=== PATIENT | male | born 1990 | race Caucasian/White ===

== ENCOUNTER 2018-08-06 20:14 | Inpatient (IN) | payer OTHER ==
[~2018-08-06] VITALS: Ht 167.6 cm; Wt 82.2 kg
[2018-08-06 20:28] VITALS: Ht 167.6 cm; Wt 82.2 kg
[2018-08-06 20:54] LABS: BASOPHIL % 0.2 % (0-2); PLATELET COUNT 329 x10^3mcL (130-400); RED CELL DISTRIBUTION WIDTH 12.2 % (11.5-14.5)
[2018-08-06 21:10] LABS: UA SPECIFIC GRAVITY 1.025 (1.005-1.035); microscopic required? YES; urine erythrocyte 3+ (NEGATIVE)
[2018-08-06 21:51] LABS: BILIRUBIN TOTAL 0.12 mg/dL (0.20-1.00); CARBON DIOXIDE 17.6 mmol/L (21-32)
[2018-08-06 22:01] LABS: ALBUMIN 0.9 g/dL (3.4-5.0); TOTAL PROTEIN, SERUM 5.7 g/dL (6.4-8.2)
[2018-08-06 22:02] LABS: CALCIUM 5.5 mg/dL (8.5-10.1); CREATININE SERUM 5.5 mg/dL (0.7-1.3)
[2018-08-06 22:03] LABS: POTASSIUM SERUM 5.7 mmol/L (3.5-5.1)
[2018-08-07] VITALS (7 sets, daily range): BP systolic 141–167; BP diastolic 84–115
[2018-08-07 00:28] LABS: CHOLESTEROL 184 mg/dL (<200); MAGNESIUM 1.9 mg/dL (1.8-2.4); PHOSPHOROUS 8.2 mg/dL (2.5-4.9)
[2018-08-07 00:29] LABS: CHOLESTEROL/HDL RATIO 8.8; HDL CHOLESTEROL 21 mg/dL (40-60); TRIGLYCERIDES 501 mg/dL (<150)
[2018-08-07 00:30] LABS: FREE T4 0.85 ng/dL (0.76-1.46); FREE THYROXINE INDEX 2.2 ug/dL (1.4-4.5); T4(THYROXINE) 5.6 ug/dL (4.7-13.3)
[2018-08-07 00:31] LABS: T3 TOTAL 0.88 ng/mL
[2018-08-07 06:59] LABS: BASOPHIL % 0.2 % (0-2); PLATELET COUNT 337 x10^3mcL (130-400); RED CELL DISTRIBUTION WIDTH 12.1 % (11.5-14.5)
[2018-08-07 07:34] LABS: CARBON DIOXIDE 16.1 mmol/L (21-32); PHOSPHOROUS 8.7 mg/dL (2.5-4.9); POTASSIUM SERUM 5.4 mmol/L (3.5-5.1)
[2018-08-07 07:38] LABS: AMPHETAMINE QUAL UR NONE DETECTED (See below)
[2018-08-07 07:55] LABS: CALCIUM 5.6 mg/dL (8.5-10.1); CREATININE SERUM 5.9 mg/dL (0.7-1.3)
[2018-08-07 10:33] LABS: CARBON DIOXIDE 14.8 mmol/L (21-32)
[2018-08-07 10:47] LABS: POTASSIUM SERUM 5.6 mmol/L (3.5-5.1)
[2018-08-07 10:48] LABS: CALCIUM 5.6 mg/dL (8.5-10.1); CREATININE SERUM 5.9 mg/dL (0.7-1.3)
[2018-08-08 05:35] VITALS: BP 151/83
[2018-08-08 06:23] LABS: MAGNESIUM 1.9 mg/dL (1.8-2.4); PHOSPHOROUS 8.8 mg/dL (2.5-4.9)
[2018-08-08 06:39] LABS: CALCIUM 5.7 mg/dL (8.5-10.1); POTASSIUM SERUM 5.6 mmol/L (3.5-5.1)
[2018-08-08 06:49] LABS: BASOPHIL % 0.3 % (0-2); PLATELET COUNT 269 x10^3mcL (130-400); RED CELL DISTRIBUTION WIDTH 12.3 % (11.5-14.5)
[2018-08-08 07:55] VITALS: BP 138/86
[2018-08-08 15:46] VITALS: BP 156/95
[2018-08-08 15:49] VITALS: BP 156/95
[2018-08-08 20:05] VITALS: BP 154/99
[2018-08-09] VITALS (7 sets, daily range): BP systolic 145–158; BP diastolic 84–108
[2018-08-09 06:43] LABS: BASOPHIL % 0.5 % (0-2); PLATELET COUNT 231 x10^3mcL (130-400)
[2018-08-09 06:53] LABS: RED CELL DISTRIBUTION WIDTH 11.4 % (11.5-14.5)
[2018-08-09 07:07] LABS: CARBON DIOXIDE 22.8 mmol/L (21-32); MAGNESIUM 1.7 mg/dL (1.8-2.4); PHOSPHOROUS 6.6 mg/dL (2.5-4.9); POTASSIUM SERUM 4.8 mmol/L (3.5-5.1)
[2018-08-09 07:08] LABS: CREATININE SERUM 6.1 mg/dL (0.7-1.3)
[2018-08-10 05:19] VITALS: BP 147/87
[2018-08-10 06:45] LABS: BASOPHIL % 0.5 % (0-2); PLATELET COUNT 244 x10^3mcL (130-400); RED CELL DISTRIBUTION WIDTH 11.5 % (11.5-14.5)
[2018-08-10 07:07] LABS: CARBON DIOXIDE 19.9 mmol/L (21-32); MAGNESIUM 1.5 mg/dL (1.8-2.4)
[2018-08-10 07:25] LABS: CREATININE SERUM 7.3 mg/dL (0.7-1.3)
[2018-08-10 07:26] LABS: CALCIUM 5.6 mg/dL (8.5-10.1)
[2018-08-10 08:45] VITALS: BP 143/102
[2018-08-10 12:30] VITALS: BP 130/86
[2018-08-10 14:59] LABS: CARBON DIOXIDE 25.3 mmol/L (21-32); POTASSIUM SERUM 5.4 mmol/L (3.5-5.1)
[2018-08-10 15:19] LABS: CREATININE SERUM 7.8 mg/dL (0.7-1.3)
[2018-08-10 18:01] VITALS: BP 135/87
[2018-08-10 21:52] VITALS: BP 120/70
[2018-08-11] VITALS (7 sets, daily range): BP systolic 123–155; BP diastolic 83–102
[2018-08-11 07:38] LABS: CALCIUM 6.5 mg/dL (8.5-10.1); CARBON DIOXIDE 23.8 mmol/L (21-32); MAGNESIUM 1.7 mg/dL (1.8-2.4); PHOSPHOROUS 6.5 mg/dL (2.5-4.9); POTASSIUM SERUM 4.4 mmol/L (3.5-5.1)
[2018-08-11 07:39] LABS: CREATININE SERUM 6.1 mg/dL (0.7-1.3)
[2018-08-11 14:57] LABS: PLATELET COUNT 243 x10^3mcL (130-400)
[2018-08-11 15:03] LABS: RED CELL DISTRIBUTION WIDTH 11.2 % (11.5-14.5)
[2018-08-11 15:53] LABS: BAND NEUTROPHIL 2 % (0-10); BASOPHIL 0 % (0-2); MONOCYTE 4 % (0-7); SEGMENTED NEUTROPHILS 91 % (37-75)
[2018-08-11 15:55] LABS: PLATELET MORPHOLOGY PLATELETS DECREASED; rbc morphology (normal/abnorm) ABNORMAL (NORMAL)
[2018-08-12 05:51] VITALS: BP 145/102
[2018-08-12 06:39] LABS: BASOPHIL % 1.2 % (0-2); PLATELET COUNT 216 x10^3mcL (130-400); RED CELL DISTRIBUTION WIDTH 11.9 % (11.5-14.5)
[2018-08-12 06:56] LABS: CALCIUM 6.1 mg/dL (8.5-10.1); PHOSPHOROUS 6.8 mg/dL (2.5-4.9)
[2018-08-12 07:26] LABS: CREATININE SERUM 8.2 mg/dL (0.7-1.3)
[2018-08-12 09:07] VITALS: BP 135/90; BP 136/69
[2018-08-12 12:28] VITALS: BP 155/109
[2018-08-12 15:28] VITALS: BP 155/109
[2018-08-12 17:20] VITALS: BP 182/116
[2018-08-12 20:25] VITALS: BP 156/96
[2018-08-13 05:45] VITALS: BP 147/100
[2018-08-13 06:44] LABS: CALCIUM 6.9 mg/dL (8.5-10.1); CARBON DIOXIDE 28.1 mmol/L (21-32); MAGNESIUM 1.7 mg/dL (1.8-2.4); PHOSPHOROUS 5.1 mg/dL (2.5-4.9); POTASSIUM SERUM 4.5 mmol/L (3.5-5.1)
[2018-08-13 06:54] LABS: BASOPHIL % 0.7 % (0-2); PLATELET COUNT 212 x10^3mcL (130-400); RED CELL DISTRIBUTION WIDTH 11.7 % (11.5-14.5)
[2018-08-13 06:58] LABS: CREATININE SERUM 7.1 mg/dL (0.7-1.3)
[2018-08-13 09:54] VITALS: BP 147/95
[2018-08-13 13:21] VITALS: BP 128/90
[2018-08-13 17:33] VITALS: BP 156/98
[2018-08-13] MEDS ORDERED: ADA90 PO (20:19)
[2018-08-13 20:25] VITALS: BP 154/101
== END 2018-08-13 21:23 | disposition home or self-care (01) | DRG 469 ==
LOC: ED 20:14 → MU 23:11 → DU 23:11
PROVIDERS: Emergency Medicine; Family Medicine; Surgery; ADMIT Internal Medicine
PROC: B548ZZA Ultrasonography of Superior Vena Cava, Guidance (ICD-10-PCS; 2018-08-10)
PROC: 05HM33Z Insertion of Infusion Device into Right Internal Jugular Vein, Percutaneous Approach (ICD-10-PCS; 2018-08-10)
PROC: B543ZZA Ultrasonography of Right Jugular Veins, Guidance (ICD-10-PCS; 2018-08-10)
PROC: 02HV33Z Insertion of Infusion Device into Superior Vena Cava, Percutaneous Approach (ICD-10-PCS; principal; 2018-08-10 16:15)
DX: N17.0 Acute kidney failure with tubular necrosis (principal); J96.00 Acute respiratory failure, unspecified whether with hypoxia or hypercapnia; E43 Unspecified severe protein-calorie malnutrition; I12.0 Hypertensive chronic kidney disease with stage 5 chronic kidney disease or end stage renal disease; K72.90 Hepatic failure, unspecified without coma; E87.2 Acidosis; N18.6 End stage renal disease; E87.1 Hypo-osmolality and hyponatremia; F15.10 Other stimulant abuse, uncomplicated; F12.10 Cannabis abuse, uncomplicated; E83.39 Other disorders of phosphorus metabolism; J98.11 Atelectasis; E02 Subclinical iodine-deficiency hypothyroidism; E83.51 Hypocalcemia; E87.5 Hyperkalemia; R80.9 Proteinuria, unspecified; Z99.2 Dependence on renal dialysis; Z68.29 Body mass index [BMI] 29.0-29.9, adult; F17.210 Nicotine dependence, cigarettes, uncomplicated
CPT/HCPCS: 83880; 84439; 86580; A4301; A4719; G0480; J0360; J0690; J1642; J1644; J1940; J2001; J2060; J3475; J3490; J7030; Q0092

== ENCOUNTER 2019-02-17 11:13 | Inpatient (IN) | payer OTHER ==
[~2019-02-17] VITALS: Ht 167.6 cm; Wt 74.0 kg
[~2019-02-17 11:13] MED LIST: ADA90 PO
--- NOTE | 2019-02-17 11:40 | NUR ---
ABD PAIN LUQ 8/10 TENDER TO PALP AND CLAIMS DIARRHEA. ABD FIRM AND SLIGHTLY ROUND. PT ALSO HAS BILATERAL NON PITTING EDEMA SLIGHT WITH 2/10 PAIN UPON PALPATION. PT HERE FOR NOT THE FEELING OF BEING "SWOLLEN". PT HAS RIGHT UPPER CHEST ANGELINA CATH AND IS IN DIALYSIS AND IS SUPPOSED TO GO 3 TIMES A WEEK AND HAS NOT HAD DIALYSIS FOR APPROX 1 MONTH. PT ARRIVES AND CLAIMS HE HAS NOT GONE DUE TO INSURANCE AND MD ISSUES. ALERT AND ORIENTED WITH NO DISTRESS NOTED AND VSS EXCEPT BP 168/117. DR LARA AT BEDSIDE FOR KAREN
--- NOTE | 2019-02-17 11:43 | NUR ---
LAB AT BEDSIDE
[2019-02-17 11:52] LABS: PLATELET COUNT 201 x10^3mcL (130-400)
[2019-02-17] MEDS ORDERED: NATURE'S BLEND F1 MG PO (12:02)
[2019-02-17] MEDS ORDERED: CALCIUM ACETAT667 M3 PO (12:02)
[2019-02-17 12:06] LABS: BILIRUBIN TOTAL 0.3 mg/dL (0.20-1.00); CALCIUM 6.4 mg/dL (8.5-10.1); TOTAL PROTEIN, SERUM 6.4 g/dL (6.4-8.2)
[2019-02-17 12:13] LABS: ALBUMIN 1.5 g/dL (3.4-5.0)
[2019-02-17 12:16] LABS: CARBON DIOXIDE 9.9 mmol/L (21-32); POTASSIUM SERUM 5.9 mmol/L (3.5-5.1)
[2019-02-17 12:17] LABS: CREATININE SERUM 18.4 mg/dL (0.7-1.3)
[2019-02-17 12:20] LABS: BAND NEUTROPHIL 1 % (0-10); BASOPHIL 0 % (0-2); MONOCYTE 7 % (0-7); SEGMENTED NEUTROPHILS 77 % (37-75)
[2019-02-17 12:21] LABS: PLATELET MORPHOLOGY PLATELETS DECREASED; ovalocyte/elliptocyte 1+; rbc morphology (normal/abnorm) ABNORMAL (NORMAL)
[2019-02-17] MEDS ORDERED: METOPROLOL SUCC50 M2 PO (12:49)
--- NOTE | 2019-02-17 13:15 | NUR ---
REPORT GIVEN TO YUSUF FERRERA RN. BED NOT AVAILABLE AND WILL BRING PT IN APPROX 10 MIN.
[2019-02-17 13:34] LABS: T3 TOTAL 0.78 ng/mL
[2019-02-17 13:35] LABS: FREE T4 0.83 ng/dL (0.76-1.46); FREE THYROXINE INDEX 2.1 ug/dL (1.4-4.5); T4(THYROXINE) 5.9 ug/dL (4.7-13.3)
[2019-02-17 14:05] VITALS: BP 155/111
--- NOTE | 2019-02-17 14:11 | NUR ---
CHI BROWN ORDERED A KO CATH. MYSELF AND ADONIS RIDER AND AURA RIDER, ALL TRIED TO INSERT THE KO, BUT WE WERE UNABLE TO PUSH PAST THE BASE OF HIS URETHRA, IT CURLED BACK. I DID A BLADDER SCAN, AND IT SHOWED ONLY 67 ML URINE. I TOLD THE PATIENT TO USE THE URINAL PROVIDED IF HE NEEDS TO URINATE. CHI BROWN AWARE OF ALL THE ABOVE.
[2019-02-17 14:24] LABS: CHOLESTEROL 294 mg/dL (<200); CHOLESTEROL/HDL RATIO 15.5; HDL CHOLESTEROL 19 mg/dL (40-60); TRIGLYCERIDES 640 mg/dL (<150)
--- NOTE | 2019-02-17 14:26 | NUR ---
RECEIVED PT FROM ER, PT ADMIT FOR RENAL FAILURE, METABOLIC ACIDOSIS, ACS, PT IS A/O X4, VERBAL RESPONSIVE, LUNG SOUND CLEAR BILATERAL, PT IS ON 2L/MIN O2 VIA NC. PO2 98%, DENY ANY SOB AT THIS TIME, PT IS ON TELE 17, NSR, DENY ANY CHEST PAIN OR DISCOMFORT, BOWEL SOUND PRESENT ALL 4 QUADRANTS, NO DISTENTION, NO TENDER. PEDAL PULSE PRESENT BOTH FEET, NO EDEMA, IV AT LEFT AC, NO LEAKING, NO INFILTRATION. PT HAS MCKINLEY CATH AT RIGHT UPPER CHEST, PT STATE HE HASN'T HAVE DIALYSIS FOR OVER 1 MONTH. ALL ADLS ASSIST, ALL NEED MET, CALL LIGHT IN REACH, ALL INFORMATION ENDORSE TO IBAN RIDER.
[2019-02-17 16:32] VITALS: BP 149/115
--- NOTE | 2019-02-17 16:58 | NUR ---
CHI FRANCIS SOLE DYER AWARE THAT TROPONIN IS 0.140, NO FURTHER ORDERS. SHE ORDERED A CARDIAC CONSULT PREVIOUSLY, AND THE PREVIOUS TROPONIN WAS 0.129. HE IS ALSO A HEMODIALSIS PATIENT.
[2019-02-17 17:58] LABS: UA SPECIFIC GRAVITY 1.015 (1.005-1.035); microscopic required? YES; urine erythrocyte 3+ (NEGATIVE)
[2019-02-17 18:08] LABS: AMPHETAMINE QUAL UR NONE DETECTED (See below)
--- NOTE | 2019-02-17 18:09 | NUR ---
AAO TIMES 4. TELE # 17 SR. HE WILL GET HD TONIGHT, THE CONSENT SIGNED. NO C/O PAIN. NO SOB. URINE SENT FOR UDS, URC, AND UA. GOOD APPETITE. COOPERATIVE.
--- NOTE | 2019-02-17 19:30 | NUR ---
RECIEVED PATIENT AT START OF SHIFT RESTING IN BED, A/O X4. ON TELE 17, NSR. PERMACATH TO RIGHT UPPER CHEST. DIALYSIS NURSE AT BEDSIDE SETTING UP HD. IV TO LAC IS INFUSING WITHOUT ERYTHEMA OR INFILTRATION. NO SOB ON 2L NC. LUNGS DIMINISHED AT BILATERAL BASES. PATIENT DENIES PAIN. BED LOCKED AND IN LOWEST POSIITON. CALL LIGHT AND BEDSDIE TABLE WITHIN REACH.
[2019-02-17 20:47] VITALS: BP 143/109
--- NOTE | 2019-02-17 21:00 | NUR ---
ORDER FOR KO CATHETER FROM DAYSHIFT NOTED. NO KO IN PLACE AT THIS TIME. PATIENT STATES HE VOIDS FREELY WITHOUT DIFFICULTY.DR. GUNDERSON NOTIFIED, HE STATED IT IS OKAY TO HOLD KO AT THIS TIME.
--- NOTE | 2019-02-17 21:30 | NUR ---
HD COMPLETED AT THIS TIME, 2L OUT. BP IS 147/106. PATIENT DENIES N/V PAIN. PERMACATH SITE CDI AND HEP LOCKED.
--- NOTE | 2019-02-18 06:09 | NUR ---
PATIENT IS AWAKE. PATIENT REPORTED HE DID NOT SLEEP WELL THROUGH THE NIGHT. DENIES PAIN. NO SOB ON 2L NC. IV INFUSING WITHOUT ERYTHEMA OR INFILTRATION. CHG WIPES PROVIDED TO PREVENT CLABSI. BED LOCKED AND IN LOWEST POSITION. CALL LIGHT AND BEDSIDE TABLE WITHIN REACH. WILL ENDORSE CARE TO DAYSHIFT NURSE.
[2019-02-18 06:12] VITALS: BP 147/101
[2019-02-18 06:44] LABS: PLATELET COUNT 183 x10^3mcL (130-400); RED CELL DISTRIBUTION WIDTH 14.2 % (11.5-14.5)
--- NOTE | 2019-02-18 07:00 | NUR ---
RECEIVED REPORT FROM MADISYN RN, PT IN NO ACUTE DISTRESS
--- NOTE | 2019-02-18 07:15 | NUR ---
PT IN BED, IN NO ACUTE RESP DISTRESS, VERBAL, ENLISH, ABLE TO MAKE NEEDS KNOWN, CALM AND COPPERATIVE, PERRLA, NO REDNESS/DISCHARGE, RESP EVEN AND NON-LABORED, CHEST RISE SYMMETRICALLY, TELE #17, NSR, HR-97 AT THIS TIME, ABD FLAT AND NON-TENDER TO TOUCH, BS ACTIVE, DIARRHEA X 1 ON 02/17, PALP PULSES, CAP REFIL < 2 SECS, DIM BLL, HD MWF, LAST DIALYSIS 02/17, PERM CATH RUC PATENT, DERESSING CDI, AMBULATORY, IV PATENT AND NO INFILTRATION, AMBULATORY, CONTINENT, SKIN D/W/C, ALL NEEDS ADDRESSED AT THIS TIME, SAFERTY PROTOCOL FOLLOWED, CONTINUE TO MONITOR
[2019-02-18 07:22] LABS: CALCIUM 6.4 mg/dL (8.5-10.1); CARBON DIOXIDE 19.3 mmol/L (21-32); MAGNESIUM 1.7 mg/dL (1.8-2.4); PHOSPHOROUS 8.6 mg/dL (2.5-4.9); POTASSIUM SERUM 4.5 mmol/L (3.5-5.1)
[2019-02-18 07:28] LABS: CREATININE SERUM 12.9 mg/dL (0.7-1.3)
--- NOTE | 2019-02-18 07:34 | NUR ---
RECEIVED LAB BUN 64.0, CR 12.9, RELEASE ENGINEER CHI FRANCIS MADE AWARE, CHARGE NURSE GE MADE AWARE
[2019-02-18 09:23] VITALS: BP 141/102
--- NOTE | 2019-02-18 09:36 | NUR ---
DONOR CENTER TECHNICIAN COURTNEY MADE AWARE OF BUN AND CR LEVEL, SAID WILL ORDER DIALYSIS X 1 TIME TODAY, PT MADE AWARE, CHARGE NRUSE ADONIS MADE AWARE, CONTINUE TO MONITOR
--- NOTE | 2019-02-18 09:36 | NUR ---
PT IN NO ACUTE RESP DISTRESS, IN BED, AM MED GIVEN PER MD ORDER, TAKEN WELL, NO ASE NOTED AT THIS TIME, ALL NEEDS ADDRESSED, SAFETY PROTOCOL FOLLOWED, CONTINUE TO MONITOR
[2019-02-18 09:53] LABS: BAND NEUTROPHIL 1 % (0-10); BASOPHIL 0 % (0-2); MONOCYTE 11 % (0-7); SEGMENTED NEUTROPHILS 73 % (37-75)
[2019-02-18 09:55] LABS: rbc morphology (normal/abnorm) ABNORMAL (NORMAL)
[2019-02-18 09:56] LABS: PLATELET MORPHOLOGY PLATELETS NORMAL; burr cell (echinocyte) 1+; tear drop cell (dacryocyte) 1+
--- NOTE | 2019-02-18 10:11 | NUR ---
INFECTION PREVENTION COORDINATOR ADREA FRANCIS AWARE OF WBC-2.3, REVERSED ISOLATION APPLIED, PT MADE AWARE, PT EDUCATED A/B S/S OF INFECTION AND REPORT ITALIA, VERBALLY UDNERSTANDING, CONTINUE TO MONITOR
--- NOTE | 2019-02-18 10:49 | NUR ---
CLOTHING SUPERVISOR CHI FRANCIS MADE AWARE OF NEW ELEVATED TROPONIN LEVEL AT 0.142, CHARGE NURSE ADONIS MADE AWARE, CONTINUE TO MONITOR
[2019-02-18 13:29] VITALS: BP 142/101
--- NOTE | 2019-02-18 13:42 | NUR ---
ECHO PENDING. PT HAVING HD.
--- NOTE | 2019-02-18 13:43 | NUR ---
[facility] HD RN REPORTED THAT HE RECEIVED TELEPHONE ORDER FROM FILM SOUND ENGINEER COURTNEY FOR HD AFTER LUNCH VIA TELEPHONE, PT HAD HD AT BEDSIDE AT THIS TIME, FAMILY AT BEDSIDE, IN NO ACUTE DISTRESS, CONTINUE TO MONITOR
--- NOTE | 2019-02-18 13:46 | NUR ---
PT HAD ORDER FOR CXR 2 VIEW, WILL BE DONE AFTER HD, PT MADE AWARE, CHARGE NURSE ADONIS MADE AWARE
[2019-02-18 15:04] VITALS: Ht 167.6 cm; Wt 74.0 kg
--- NOTE | 2019-02-18 17:03 | NUR ---
PT FINISHED HD, 2000ML FLUID REMOVED, REPORTED NO PAIN/CP/PRESSURE, REPORT NO DISCOMFORT AT THIS TIME, LYING IN BED, RESP EVEN AND NON-LABORED, CHEST RISE SYMMETRICALLY, ALL NEEDS ADDRESSED AT THIS TIME, WILL CONTINUE TO MONITOR
[2019-02-18 17:41] VITALS: BP 150/108
--- NOTE | 2019-02-18 18:06 | NUR ---
PT RESTING IN BED W/ EYE CLOSED, IN NO APPARENT ACUTE DISTRESS, NO FACIAL DROOP, RESP EVEN AND NON-LANORED, CHEST RISE SYMMETRICALLY, ABD FLAT AND NON-TENDER TO TOUCH, ABLE TO MOVE ALL EXTREMITITES, PALP PULSES, CAP REFILL < 3 SECS, IV PATENT AND NO-INFILTRATION, PERM CATH TO RUC PATENT, DRESSIGN CDI, TELE #17, NSR, ASSISTED PT TO RADIOLOGY FOR CXR 2 VIEW VIA WC, ALL NEEDS ADDRESSED AT THIS TIME, CALL LIGHT IN REACH, BED AT LOW POSITION, RAILS X 2 , WILL ENDORSE TO ONCOMING RN
--- NOTE | 2019-02-18 19:30 | NUR ---
REC'D PT FROM DAY NURSE. PT RESTING IN BED. AAOX4, SPEECH CLEAR, FOLLOWS COMMANDS. TELE 17, NSR. DENIES CP, DIZZINESS, OR PALPITATIONS. DENIES RESP DISTRESS OR SOB. BREATHING EVEN/UNLABORED ON RA. NO EDEMA NOTED. ABD SOFT/ROUND. DENIES ABD PAIN, TENDERNESS, OR N/V. VOIDING FREELY. INSTRUCTED TO URINATE IN URINAL TO MEASURE OUTPUT. PT VERBALIZED UNDERSTANDING. LAST HD TODAY, 2L OUT VIA R UPPER CHEST PERMACATH, SITE WNL. AMBULATORY. IV TO LAC FLUSHED AND PATENT, SITE WNL. CALL LIGHT WITHIN REACH, BED AT LOWEST POSITION. WILL CONTINUE TO MONITOR.
[2019-02-18 20:57] VITALS: BP 135/97
--- NOTE | 2019-02-18 21:23 | NUR ---
PT REQUESTING SLEEP AID. DR. GUNDERSON MADE AWARE VIA [employer].
--- NOTE | 2019-02-19 01:26 | NUR ---
DR. GUNDERSON MADE AWARE VIA [employer] OF MG 1.7 AND AM LABS HAVE NOT BEEN ORDERED.
--- NOTE | 2019-02-19 02:14 | NUR ---
PT RESTING IN BED WITH EYES CLOSED. NO SIGNS OF DISTRESS NOTED. BREATHING EVEN/UNLABORED ON RA. CALL LIGHT WITHIN REACH, BED AT LOWEST POSITION. WILL CONTINUE TO MONITOR.
--- NOTE | 2019-02-19 05:38 | NUR ---
PT RESTING IN BED WITH EYES CLOSED. LAYING ON L SIDE. NO SIGNS OF DISTRESS NOTED. BREATHING EVEN/UNLABORED ON RA. AWAKENS WITH VERBAL STIMULI. NO COMPLAINTS AT THIS TIME. DENIES ANY PAIN. NO SIGNIFICANT CHANGES DURING SHIFT. CALL LIGHT WITHIN REACH, BED AT LOWEST POSITION. WILL ENDORSE TO DAY NURSE.
[2019-02-19 06:00] VITALS: BP 139/102
[2019-02-19 06:43] LABS: PLATELET COUNT 172 x10^3mcL (130-400); RED CELL DISTRIBUTION WIDTH 13.6 % (11.5-14.5)
[2019-02-19 07:02] LABS: CALCIUM 6.3 mg/dL (8.5-10.1); CARBON DIOXIDE 25.1 mmol/L (21-32); POTASSIUM SERUM 4.1 mmol/L (3.5-5.1)
[2019-02-19 07:10] LABS: CREATININE SERUM 8.6 mg/dL (0.7-1.3)
--- NOTE | 2019-02-19 07:15 | NUR ---
RECEIVED PT FROM ZULEYMA RN. PT RESTING IN BED WITH BOTH EYES CLOSED. NO S/S OF ACUTE DISTRESS. NSR ON TELE 17, HR 74. NO S/S OF PAIN. CALM/COOPERATIVE AT THIS TIME. NO N/V. NO SOB ON ROOM AIR. IV WNL TO LAC, NO REDNESS, NO SWELLING, NO INFILTRATION. CALM/COOPERATIVE. NEUTROPENIC PRECAUTIONS IN PLACE PROPHYLACTIC. BED IN LOW POSITION. CALL LIGHT WITHIN REACH. WILL CONTINUE TO MONITOR.
[2019-02-19 08:05] VITALS: BP 127/95
[2019-02-19 09:10] VITALS: BP 139/102
--- NOTE | 2019-02-19 11:09 | NUR ---
PT MED SURG. TELE REMOVED. DENIES CHEST PAIN. AA/OX4. NO SOB ON ROOM AIR. CALM/COOPERATIVE. NO N/V. NO SOB ON ROOM AIR. IV WNL. BED IN LOW POSITION. CALL LIGHT WITHIN REACH. WILL CONTINUE TO MONITOR.
[2019-02-19 11:50] VITALS: BP 147/104
--- NOTE | 2019-02-19 13:10 | NUR ---
RECEIVED PT FROM TERESO OLIVARES. PT IS AAOX4. DENIES HEADACHE/DIZZINESS. NO C/O CHEST PAIN AND SOB. W/ DIALYSIS CATHETER ON THE RIGHT CHEST, CDI. IV SITE ON THE LAC IS PATENT AND INTACT. SKIN IS DRY AND INTACT. CALL LIGHT ON REACH. SIDE RAILS UPX2. WILL CONT TO MONITOR
[2019-02-19 16:16] VITALS: BP 137/98
--- NOTE | 2019-02-19 17:00 | NUR ---
PT HAS HIS EYES CLOSED, EASILY AROUSABLE TO VERBAL STIMULI. NO SOB/PAIN NOTED. DR. BWOLES AT BEDSIDE. PT WAS UPDATED ABOUT THE SCHEDULED OUTPATIENT DIALYSIS PER BUTTON SEWER HAND. PT VERBALIZES UNDERSTANDING. NEEDS ARE ATTENDED. CALL LIGHT ON REACH. WILL CONT TO MONITOR
--- NOTE | 2019-02-19 18:53 | NUR ---
AALIYAH BAÑUELOS [facility] MADE AWARE THAT THERE IS AN ORDER ENTERED FOR HD TOMORROW.
--- NOTE | 2019-02-19 18:58 | NUR ---
BEDSIDE REPORT GIVEN TO DAGOBERTO FOR CONTINUITY OF CARE
--- NOTE | 2019-02-19 19:35 | NUR ---
RECEIVED PT FROM PREVIOUS SHIFT. PT A/OX4. DENIES PAIN. DENIES SOB ON RA. IV PATENT AND INFUSING NS AT 10ML/HR WITH NO S/S OF INFILTRATION. CALL LIGHT WITHIN REACH, BED IN LOW POSITION. WILL CONTINUE TO MONITOR.
[2019-02-19 20:52] VITALS: BP 142/89
--- NOTE | 2019-02-19 21:11 | NUR ---
PT REQUESTING MEDICATION FOR SLEEP. DR GUNDERSON NOTIFIED. ORDER RECEIVED FOR BENADRYL PO. WILL MEDICATE PER EMAR AND CONTINUE TO MONITOR.
--- NOTE | 2019-02-20 02:40 | NUR ---
PT RESTING IN NO ACUTE DISTRESS. RR EVEN AND UNLABORED. IV PATENT. CALL LIGHT WITHIN REACH, BED IN LOW POSITION. WILL CONTINUE TO MONITOR.
--- NOTE | 2019-02-20 05:44 | NUR ---
MOTHER AT BEDSIDE. PT IN NO ACUTE DISTRESS. WILL ENDORSE CARE TO ONCOMING SHIFT.
[2019-02-20 06:09] VITALS: BP 148/100
--- NOTE | 2019-02-20 07:30 | NUR ---
SEEN IN BED AAOX4. NO RESP DISTRESS NOTED. BREATHING ON ROOM AIR. DENIES PAIN. PLAN OF HEMODIALYSIS TODAY INFORMED, PATIENT AND HIS MOTHER AT BEDSIDE MADE AWARE. TUNEL CATHETER TO RIGHT CHEST WALL WITH DRSG CDI. STATED LAST HD WAS FRIDAY. STATED STILL VOIDING BUT GETTING LESS AND LESS. ON RENAL DIET. S/L TO LAC INTACT AND PATENT. CALL LIGHT PLACED WITHIN EASY REACH. SIDERAILS UP X2.
[2019-02-20 08:06] VITALS: BP 145/105
--- NOTE | 2019-02-20 08:21 | NUR ---
DIALYSIS NURSE AT BEDSIDE. CONSENT NOTED DONE FROM PREVIOUS SHIFT. TUNNEL CATHETER TO RIGHT CHEST WITH DRSG CDI.
[2019-02-20 09:13] LABS: IRON 29 ug/dL (65-170); TOTAL IRON BINDING CAPACITY 93 ug/dL (250-450)
--- NOTE | 2019-02-20 10:46 | NUR ---
HEMODIALYSIS ONGOING AT BEDSIDE. HD RN AT BEDSIDE.
--- NOTE | 2019-02-20 11:22 | NUR ---
HEMODIALYSIS DONE, NET OUTPUT 2.4LITERS. DRSG TO TUNNEL CATHETER NOTED CDI. NO ANY DISTRESS NOTED. WILL CONTINUE TO MONITOR.
[2019-02-20 11:53] VITALS: BP 154/104
--- NOTE | 2019-02-20 13:00 | NUR ---
NOTED FINISHED 100% OF RENAL DIET LUNCH. DENIES DISCOMFORT AT THIS TIME. ENCOURAGED TO AMBULATE ON THE HALLWAY TOLERATED. SCHEDULED MEDS GIVEN.
--- NOTE | 2019-02-20 14:00 | NUR ---
RESTING WITH EYES CLOSED. NO ANY DISTRESS NOTED.
[2019-02-20 16:35] VITALS: BP 145/98
--- NOTE | 2019-02-20 18:49 | NUR ---
TOLERATED TO DIET WELL. DENIES DISCOMFORT AT THIS TIME. ALL DUE MEDS GIVEN.
[2019-02-20 20:42] VITALS: BP 128/88
--- NOTE | 2019-02-21 00:31 | NUR ---
PT RESTING IN NO ACUTE DISTRESS. RR EVEN AND UNLABORED. CALL LIGHT WITHIN REACH, BED IN LOW POSITION. WILL CONTINUE TO MONITOR.
[2019-02-21 05:58] VITALS: BP 148/100
[2019-02-21 07:01] LABS: CALCIUM 6.1 mg/dL (8.5-10.1); CARBON DIOXIDE 25.7 mmol/L (21-32); POTASSIUM SERUM 4.5 mmol/L (3.5-5.1)
--- NOTE | 2019-02-21 07:07 | NUR ---
SEEN RESTING IN BED WITH EYES CLOSED. BREATHING E/U ON ROOM AIR. TUNNEL CATHETER NOTED WITH DRSG CDI. CALL LIGHT PLACED WITHIN EASY REACH. SIDERAILS UP X2. WILL CONTINUE TO MONITOR.
[2019-02-21 07:10] LABS: CREATININE SERUM 8.6 mg/dL (0.7-1.3)
[2019-02-21 07:31] LABS: PLATELET COUNT 163 x10^3mcL (130-400); RED CELL DISTRIBUTION WIDTH 13.3 % (11.5-14.5)
[2019-02-21 08:05] VITALS: BP 150/111
[2019-02-21] MEDS ORDERED: COR6 PO (09:57)
[2019-02-21] MEDS ORDERED: EUTHYROX25 MCG PO (09:57)
[2019-02-21] MEDS ORDERED: ZESTRIL5 MG PO (09:57)
[2019-02-21 11:03] VITALS: BP 150/111
--- NOTE | 2019-02-21 11:16 | NUR ---
PATIENT MADE AWARE OF DISCHARGE HOME PLAN TODAY. PATIENT'S MOTHER GANGA INFORMED VIA PHONE ([phone]) ABOUT DISCHARGING STATED WILL BE HERE SOON.
[2019-02-21 11:50] VITALS: BP 148/99
--- NOTE | 2019-02-21 13:16 | NUR ---
DISCHARGE INSTRUCTION AND PRESCRIPTION EXPLAINED AND GIVEN TO PATIENT AND PATIENT'S FATHER, THEY BOTH VERBALIZED UNDERSTANDING. S/L TO LAC REMOVED WITH CATHETER INTACT, DRSG APPLIED. INSTRUCTED TO KEEP TUNNEL CATHETER DRSG DRY, INTACT AT ALL TIMES. [facility] EVETTE AGARWAL AND FATHER. CONDITION STABLE UPON DISCHARGE.
== END 2019-02-21 13:18 | disposition home or self-care (01) | DRG 682 ==
LOC: ED 11:13 → DU 12:49 → MU 12:49 → DU 14:07 → MU 02-19 11:11
PROVIDERS: Emergency Medicine; Internal Medicine; ADMIT Internal Medicine
DX: N17.0 Acute kidney failure with tubular necrosis (principal); G93.41 Metabolic encephalopathy; E43 Unspecified severe protein-calorie malnutrition; I50.43 Acute on chronic combined systolic (congestive) and diastolic (congestive) heart failure; I13.2 Hypertensive heart and chronic kidney disease with heart failure and with stage 5 chronic kidney disease, or end stage renal disease; E87.2 Acidosis; J90 Pleural effusion, not elsewhere classified; N18.6 End stage renal disease; F12.10 Cannabis abuse, uncomplicated; F15.10 Other stimulant abuse, uncomplicated; E02 Subclinical iodine-deficiency hypothyroidism; E87.5 Hyperkalemia; Z99.2 Dependence on renal dialysis; Z68.26 Body mass index [BMI] 26.0-26.9, adult; Z87.891 Personal history of nicotine dependence; Z91.15 Patient's noncompliance with renal dialysis; Z91.19 Patient's noncompliance with other medical treatment and regimen
CPT/HCPCS: 83880; 84439; G0378; J0610; J0885-EC; J1644; J3490; J7030; J7040; J7050; J7620; Q0092; Q0163